=== PATIENT | male | born 1935 | race Caucasian/White ===

== ENCOUNTER 2016-10-15 09:57 | Outpatient (CLI) | payer MEDICARE, MEDICAID ==
[~2016-10-15] VITALS: Ht 170.2 cm; Wt 109.1 kg
--- NOTE | ~2016-10-15 | OP ---
PATIENT NAME: EVELIA CABRERA I MEDICAL RECORD: [id number] :37 LOCATION:D. D.2114 ADMISSION DATE: SURGEON: ABRAHAM CARO MD OPERATION DATE: 10/15/16 DATE OF OPERATION: 10/15/2016 PREOPERATIVE DIAGNOSES: Sick sinus syndrome with pauses. POSTOPERATIVE DIAGNOSES: Sick sinus syndrome with pauses. PROCEDURES: Creation of left infraclavicular pacemaker pocket with vascular access into the central venous circulation and then closure of the pacemaker pocket. SMALL BOAT ENGINEER: Dr. Julio Cesar Milner. SURGEON: Dr. Abraham Caro Jr. ANESTHESIA: Local with IV sedation. COMPLICATIONS: None. The risks, possible complications and alternatives to procedure were explained to the patient. A consent form was signed. OPERATIVE COURSE: The patient was conveyed to the cardiac catheterization laboratory on 10/15/2016. An IV sedation was induced by the nursing staff under our direction. The left chest was sterilely prepped and draped. A local anesthetic was used to infiltrate the skin and subcutaneous tissues inferior to the left clavicle. A transverse incision was accomplished. I dissected down to the pectoralis fascia. A pacemaker pocket was created in a caudad direction. Through the pacemaker pocket, I accessed the left subclavian vein in an antegrade fashion. A guidewire passed easily. This was visualized under fluoroscopy. A 9-Qatari dilator sheath was advanced. The dilator was removed. Through the sheath, the ventricular lead was advanced. Dr. Julio Cesar Milner positioned the lead. Appropriate thresholds were obtained. I sutured the leads down to the underlying pectoralis fascia with 2-0 TiCron times 2. Over a secondary wire, a 7-Qatari dilator sheath was advanced. The dilator wire were removed. Through the sheath, the atrial wire was advanced into the central venous circulation. The sheath was peeled away. Dr. Julio Cesar Milner positioned the atrial lead, appropriate thresholds were obtained. I sutured the leads down to the underlying pectoralis fascia. A single suture was placed medially around both wires to prevent backbleeding. I confirmed the ventricular lead with pacemaker small business sales representative and the ventricular lead was placement in the ventricular dock of the pacemaker and then tightened down with the wrench. I try to dislodge the ventricular lead and it would not dislodge. I then confirmed the atrial lead with pacemaker small business sales representative. Atrial lead was placed in the atrial dock of the pacemaker. I then tightened down with the wrench. I tried to dislodge the lead and could not do so. OPERATIVE REPORT [id number] EVELIA CABRERA I The pacemaker was then placed in the pacemaker pocket with care paid to place the leads posterior to the pacemaker. Pacemaker sutured to the underlying pectoralis fascia with a single 2-0 TiCron. I irrigated the pacemaker pocket with normal saline. The subdermis was approximated with interrupted 3-0 Vicryls. The skin was approximated with a running intracuticular 3-0 Vicryl. A sterile dressing was applied. The patient was then conveyed to post cardiac catheterization recovery area. TRANSINT:[id number] Voice Confirmation ID: [id number] DOCUMENT ID: [id number] ABRAHAM CARO MD CC: JULIO CESAR LONGO MD [id number] DICTATION DATE: 10/15/16 1515 RETAIL SOLAR ADVISOR: 10/15/16 2101 [facility] [address] [place] [address]
--- NOTE | ~2016-10-15 | HEMODYNAMI ---
PATIENT:EVELIA CABRERA I MEDICAL RECORD: [id number] : 37 LOCATION:DMariferCAT ADMISSION DATE: 10/15/16 Generatedon:10/15/201615:04 Patient name: EVELIA CABRERA Patient #: [id number] SSN: D OB: 1935 Date of study: 10/15/2016 Page: Of Hemodynamic Procedure Report Patient Data Patient Demographics Procedure consent was obtained First Name: EVELIA Gender: Male Last Name: DEBORAH : 1935 [facility] Initial: I Age: 81 year(s) Patient #: [id number] Race: Unknown Additional ID: [id number] Contact details [address]: [address] [place] [address] State: [place] City: [place] Zip code: [address] Past Medical History Allergies: No known allergies Admission Admission Data Admission Date: 10/15/2016 Admission Time: 9:57 Procedure Procedure Types Cath Procedure Diagnostic Procedure PPM/ICD PPM Dual Implant Miscellaneous Procedures Moderate Sedation up to 30 minutes Procedure Description Procedure Date Procedure Date: 10/15/2016 Procedure Start Time: 14:22 Procedure End Time: 14:54 Procedure Staff Name Function Julio Cesar Milner MD Performing Physician Nki Hillman MD Assisting physician Harmony Byrd RN Nurse Deja Snider RT Monitor Lang Marshall RT Scrub Edenilson Moya RT Locomotive Mechanic Procedure Data Cath Procedure Fluoroscopy Diagnostic fluoroscopy Total fluoroscopy Time: 2 time: 2 min min Diagnostic fluoroscopy Total fluoroscopy dose: 61 dose: 61 mGy mGy Estimated blood loss: 10 ml Procedure Complications No complications Procedure Medications Medication Administration Route Dosage Lidocaine 1% with added to field 20 ml Epi Bupivacaine 0.5% S.Q. 10 ml Ancef (1Gm/50ml NS) I.V.P.B 1 g Ancef Irrigation Topical 1 g (1gm/500ml NS) 0.9% NaCl I.V. 25 ml/hr Versed I.V. 1 mg Fentanyl I.V. 50 mcg Versed I.V. 1 mg Fentanyl I.V. 50 mcg Hemodynamics Rest Pre Cath Intra NCS Post Cath Vital Signs Time Heart Resp SPO2 NIBP (mmHg) Rhythm Pain Sedation Rate (ipm) (%) Status Level (bpm) 14:11:02 53 16 96 184/90(157) NSR 0 (11) 10(A) , No pain 14:15:47 52 18 95 179/85(141) NSR 0 (11) 10(A) , No pain 14:20:33 49 15 96 170/82(134) NSR 0 (11) 10(A) , No pain 14:25:12 64 28 98 149/127(145) NSR 0 (11) 10(A) , No pain 14:30:58 63 16 94 173/86(134) NSR 0 (11) 10(A) , No pain 14:35:39 65 16 95 165/88(134) NSR 0 (11) 9(A) , No pain 14:40:19 65 15 94 179/79(137) Paced 0 (11) 9(A) , No pain 14:45:59 60 15 94 175/82(137) Paced 0 (11) 9(A) , No pain 14:50:44 62 14 95 173/82(142) Paced 0 (11) 9(A) , No pain 14:55:27 60 15 95 176/87(140) Paced 0 (11) 10(A) , No pain Medications Time Medication Route Dose Verified Delivered Reason Notes Effectiv eness by by 14:07:23 Lidocaine added 20 ml Julio Cesar Zaragoza for local 1% with Epi to O'Donnell Breving anesthetic field MD S[facility]ACR[facility]Z 14:07:45 Bupivacaine S.Q. 10 ml Julio Cesar Zaragoza for local 0.5% O'Donnell Breving anesthetic MD [place]CR[facility]Z 14:07:59 Ancef I.V.P.B 1 g Julio Cesar Antunez used for (1Gm/50ml Annia Byrd brake assembler NS) 14:08:10 Ancef Topical 1 g Julio Cesar Zaragoza used for Irrigation O'Donnell Breving procedure (1gm/500ml MD S[place]ACRUZ NS) 14:08:33 0.9% NaCl I.V. 25 Julio Cesar Antunez Per ml/hr St. Jaime Byrd RN physician 14:22:44 Versed I.V. 1 mg Julio Cesar Antunez for [facility]. Jaime Byrd RN sedation 14:22:52 Fentanyl I.V. 50 Julio Cesar Antunez for [facility] [place] St. Jaime Byrd RN sedation 14:31:18 Versed I.V. 1 mg Julio Cesar Antunez for [facility]. Jaime Byrd RN sedation 14:31:22 Fentanyl I.V. 50 Julio Cesar Antunez for [facility] [place] [facility]. Jaime Byrd RN sedation Procedure Log Time Note 13:25:43 Edenilson Moya RT(R) sent for patient. Start room use. 13:37:44 Time tracking: Regular hours 13:37:48 Plan of Care:Hemodynamics will remain stable., Cardiac rhythm will remain stable., Comfort level will be maintained., Respiratory function will remain adequate., Patient/ family verbilizes understanding of procedure., Procedure tolerated without complication., Recovers from procedure without complications.. 13:53:56 Patient received from Pre/Post Procedure Room to CCL 3 Alert and oriented. Tansferred to table in Supine position. 13:53:58 Warm blankets applied, and jesica hugger turned on for patient comfort. 13:53:59 Correct patient and procedure confirmed by team. 13:54:02 Signed procedure consent form obtained from patient. 13:55:51 Pre-procedure instructions explained to patient. 13:55:57 Family in waiting room. 13:56:00 Patient NPO since Midnight. 13:56:17 Patient allergic to No known allergies 13:56:22 Is the patient allergic to Iodine/contrast media? No. 13:56:24 Is patient on blood thinner?No 13:56:27 Patient diabetic? No. 13:56:32 Snore? No 13:56:34 Sleep apnea? No 13:56:44 Dentures? No ? 13:56:50 Patient pain scale 0/10 ?. 13:57:05 IV patent on arrival in right antecubital with 0.9% NaCl at [facility]. 13:57:47 Lab results completed and on chart. 13:58:34 Left chest area was prepped with chlora-prep and draped in sterile fashion 13:58:40 Alarms reviewed by R. N. 13:59:17 Sharps counted by scrub and verified by R.N. 13:59:19 Physician paged 13:59:24 Physician arrived 13:59:25 --------ALL STOP TIME OUT------ 13:59:26 Final Timeout: patient, procedure, and site verified with staff and physician. All members of the team are in agreement. 13:59:33 Left chest site verified by team. 13:59:43 Physical assessment completed. ASA score P 2 - A patient with mild systemic disease as per Julio Cesar Milner MD. 13:59:53 Sedation plan: IV Moderate Sedation Versed, Fentanyl 14:07:23 Lidocaine 1% with Epi 20 ml added to field was administered by Nik Hillman MD; for local anesthetic; 14:07:45 Bupivacaine 0.5% 10 ml S.Q. was administered by Nik Hillman MD; for local anesthetic; 14:07:59 Ancef (1Gm/50ml NS) 1 g I.V.P.B was administered by Harmony Byrd RN; used for procedure; 14:08:10 Ancef Irrigation (1gm/500ml NS) 1 g Topical was administered by Nik Hillman MD; used for procedure; 14:08:33 0.9% NaCl 25 ml/hr I.V. was administered by Harmony Byrd RN; Per physician; 14:08:35 Vital chart was started 14:21:56 Use device set Pacemaker Set 14:21:59 Mepilex Dressing opened to sterile field. 14:22:00 2.0 Ticron Multipack opened to sterile field. 14:22:02 3.0 Vicryl Multipack [id number] opened to sterile field. 14:22:04 5.0 Monocryl PS2 [id number] opened to sterile field. 14:22:07 Immobilizer Large opened to sterile field. 14:22:11 Procedure started. 14:22:11 Full Disclosure recording started 14:22:44 Versed 1 mg I.V. was administered by Harmony Byrd RN; for sedation; 14:22:52 Fentanyl 50 mcg I.V. was administered by Harmony Byrd RN; for sedation; 14:23:21 Medtronic customer assistance representative Himanshu Alaniz present for procedure. 14:24:05 Pre sharps counted by scrub and verified by RN: Sutures: 0 Sponges: 5 Stick needles: 10 Skin needles: 0 Blade: 1 Cautery: 1 14:24:35 Grounding pad site free from injury. 14:24:57 Lidocaine 1% w/epi and Bupivacaine 0.5% to left subclavicular area by Nik Hillman MD. 14:25:00 Incision made to left subclavicular area. 14:27:15 Generator pocket made/opened. 14:28:12 Left subclavian vein accessed with 9Fr Safe Sheath. 14:28:16 Ventricular lead inserted and advanced. 14:30:12 Medtronic 4074-58 PPM Lead opened to sterile field. 14:31:18 Versed 1 mg I.V. was administered by Harmony Byrd RN; for sedation; 14:31:22 Fentanyl 50 mcg I.V. was administered by Harmony Byrd RN; for sedation; 14:35:39 Peel-a-way sheath was split and removed. 14:35:53 Left subclavian vein accessed with 7Fr Safe Sheath. 14:36:09 Atrial lead inserted and advanced. 14:36:11 Medtronic 4574-53 PPM Lead opened to sterile field. 14:38:48 Peel-a-way sheath was split and removed. 14:38:50 PPM Dual was attached to lead(s) and inserted into pocket. 14:38:54 Medtronic Adapta PPM Dual Generator opened to sterile field. 14:41:43 Device pocket was irrigated with Vancomycin. 14:41:52 Ventricular lead attachment was completed with 2-0 silk. 14:41:57 Atrial lead attachment was completed with 2-0 silk. 14:42:09 Subcutaneous closure was completed with 3-0 vicryl. 14:42:20 Skin closure was completed with 5-0 monocryl. 14:42:41 Device pocket was irrigated with Ancef. 14:43:15 Parameters-- Generator: Mode: ?. Lower Rate: 60bpm. Upper Rate: 130bpm. 14:44:23 Parameters--Atrial P/R Wave: 2.9mV. Current: 0.2mA; Threshold: .2V; Impedence: 906OHMS. 14:44:53 Parameters--Ventricular P/R Wave: 8.2mV. Current: .3mA; Threshold: .2V; Impedence: 1417OHMS. 14:45:01 Lt Chest incision was dressed with Mepilex dressing. 14:46:34 Procedure ended.(Physican Out) 14:53:06 Fluoroscopy time 02.00 minutes. 14:53:11 Fluoroscopy dose: 61 mGy 14:53:11 Flurop Dose total: 61 14:53:13 Sharps counted by scrub and verified by R.N. 14:53:16 Insertion/operative site no bleeding no hematoma. 14:53:25 Post left subclavian vein:stable 14:53:33 Estimated blood loss: 10 ml 14:53:35 Post procedure instruction explained to patient.Patient verbalizes understanding. 14:53:55 Procedure and supply charges have been captured, reviewed, submitted and are correct. 14:54:24 Procedure Complication : No complications 14:54:27 Vital chart was stopped 14:54:28 See physician's report for complete and final results. 14:54:32 Report given to [facility]. 14:54:36 Patient transfered to [facility] with Bed. 14:54:38 Procedure ended. 14:54:38 Full Disclosure recording stopped Device Usage Item Name Manufacture Quantity Catalog Hospital Part Current Minimal Lot# / Serial# Number Charge Number Stock Stock Code Mepilex [place] 1 [id number] 971792 237981 194549 5 Dressing Health 2.0 Ticron Ethicon 6 [id number] 231082 83069 021490 5 Multipack 3.0 Vicryl Ethicon 1 [id number] 810238 930417 5 Multipack [id number] 5.0 Ethicon 1 [id number] 834325 457941 5 Monocryl PS2 [id number] Immobilizer [place] 1 [id number] 050392 720201 260050 5 Large Health Medtronic Medtronic 1 4074-58 714850 665282 5 4074-58 PPM [id number] Lead 4074- 58 EXP; 9 Medtronic Medtronic 1 4574-53 654669 369728 5 [id number] 4574-53 PPM [id number] Lead Medtronic Medtronic 1 ADDR01 814289 120365 5 [id number] EXP Adapta PPM 02-18-2018 Dual Generator Signature Audit [place] Stage Time Signature Unsigned Intra-Procedure 10/15/2016 Deja Snider 3:04:48 PM RT(R) Signatures Monitor : Deja Snider Signature : RT Date : Time : [place] [address] [address]
[2016-10-15] MEDS ORDERED: TRAZODONE HCL50 MG PO (10:32)
[2016-10-15] MEDS ORDERED: ULTRAM50 MG PO (10:33)
[2016-10-15] MEDS ORDERED: MOBIC7.5 MG PO (10:33)
[2016-10-15 10:49] VITALS: BP 127/71; BMI 36.1
[2016-10-15 10:54] LABS: HEMATOCRIT 47.3 % (42.0-54.0); HEMOGLOBIN 16.1 g/dL (13.5-17.5); MCH 31.6 pg (26.0-34.0); MCV 92.9 fL (80.0-100.0); MEAN PLATELET VOLUME 10.8 fL (7.4-10.4); RBC 5.09 10x6/uL (4.20-6.10); RDW 13.1 % (11.5-14.5); WBC 8.3 10x3/uL (4.8-10.8)
[2016-10-15 11:14] LABS: ANION GAP 11.9 mmol/L (8-16); APTT 26.5 SECONDS (22.8-39.4); CALCIUM 8.6 mg/dL (8.5-10.1); CARBON DIOXIDE 27.2 mmol/L (21.0-32.0); CREATININE - SERUM 1.1 mg/dL (0.6-1.3); INR 1.01 (0.85-1.17); POTASSIUM - SERUM 4.1 mmol/L (3.5-5.1); PROTIME 13.1 SECONDS (11.6-15.0)
[2016-10-15 15:39] VITALS: BP 138/71
--- NOTE | 2016-10-15 16:00 | NUR ---
PT RESTING QUIETLY DENIES ANY NEEDS OR DISCOMFORT AT THIS TIME DRSG TO LT CHEST C/D/I SLING INTACT TO LT ARM
[2016-10-15 17:52] VITALS: BP 138/71; Ht 170.2 cm; Wt 109.1 kg
--- NOTE | 2016-10-15 19:45 | NUR ---
AWAKE WITH OUT ANY DISTRESS. L CHEST DRESSING CLEAN AND DRY. MONITOR SHOWS PACED @ 60.
[2016-10-15 20:01] VITALS: BP 181/88
[2016-10-16 00:17] VITALS: BP 170/81
[2016-10-16 04:46] VITALS: BP 150/79
--- NOTE | 2016-10-16 05:28 | NUR ---
SLEEPING AT INTERVALS. DRESSING CLEAN AND DRY.
[2016-10-16 08:19] VITALS: BP 137/82
--- NOTE | 2016-10-16 11:02 | NUR ---
IV AND TELEMETRY DCD. DC PLANS GIVEN. UNDERSTANDING VOICED. ESCORTED TO CAr by w/c.
--- NOTE | 2016-10-17 14:06 | OP ---
PATIENT NAME: EVELIA CABRERA I MEDICAL RECORD: [id number] :37 LOCATION:D.CAT ADMISSION DATE: SURGEON: SARAH LONGO MD PROCEDURE: Lead portion of permanent pacemaker placement. INDICATION: Tachy-zan syndrome. SURGEON: Nik Hillman F.A.C.S. PROCEDURE IN DETAIL: After left subclavian was cannulated via modified Seldinger technique via Dr. Hillman, first under fluoroscopic guidance I placed the right ventricular lead into the right ventricular apex without difficulty. After adequate R waves and thresholds were obtained, again under fluoroscopic guidance, I placed the right atrial lead in the right atrial appendage without difficulty. After adequate thresholds and P waves were obtained, the leads were attached to the appropriate poles of the generator. Pocket was closed via Dr. Hillman. IMPRESSION: Successful lead portion of permanent pacemaker placement. COMPLICATION: None. ESTIMATED BLOOD LOSS: Minimal. DISPOSITION: To the floor stable. SARAH LONGO MD at 1406 CC: [id number] DICTATION DATE: 10/15/16 1600 TUBING OILER: IMAN 10/16/16 0842 DEP CLI 10/16/16 [facility] [address] [place] [address]
== END 2016-10-16 11:02 | disposition home or self-care (01) ==
LOC: D.CATH 09:57 → D.M2 15:06 → D.CATH 10-16 11:02
PROVIDERS: Internal Medicine Interventional Cardiology
DX: I49.5 Sick sinus syndrome (principal); Z01.812 Encounter for preprocedural laboratory examination